=== PATIENT | female | born 1955 | race Caucasian/White ===

== ENCOUNTER 2021-02-17 06:11 | Day surgery (SDC) | payer MEDICARE, MEDICAID ==
[2021-02-17] MEDS ORDERED: Sodium Chloride 0.9% 1,000 ML IV SCH (07:00)
[2021-02-17] MEDS ORDERED: fentaNYL 100 MCG/2 ML SDV ONE (07:24)
[2021-02-17] MEDS ORDERED: Propofol 200 MG/20 ML SDV ONE (07:24)
[2021-02-17] MEDS ORDERED: Midazolam 1 MG/ML 2 ML SDV ONE (07:24)
[2021-02-17 09:07] VITALS: BP 111/72; PULSE 86
--- NOTE | 2021-03-05 13:50 | OR ---
DATE OF PROCEDURE: 02/17/2021 SURGEON: Jhonatan Dinh MD PROCEDURES: 1. EGD. 2. Colonoscopy. FINDINGS: 1. Mild inflammation at the GE junction. 2. Normal colonoscopy. COMPLICATIONS: None. UNIT SUPERVISOR: None. ANESTHESIA: MAC. PREOPERATIVE DIAGNOSIS: Screening colonoscopy/epigastric pain. POSTOPERATIVE DIAGNOSIS: Screening colonoscopy/epigastric pain. RISKS: Risks, benefits, alternatives, and limitations including, but not limited to infection, bleeding, perforation, false positives, false negatives were explained to the patient and she wished to proceed. PROCEDURE IN DETAIL: The patient was placed in left lateral decubitus position. The EGD scope was introduced and advanced atraumatically to the second part of the duodenum. No evidence of duodenitis or ulceration. Within the stomach, there was no gastritis or ulceration. No abnormalities on retroflexion. The patient had a few small tongues of inflammatory like tissue at the GE junction. These were biopsied including all 4 quadrants using cold biopsy forceps. The remainder of the esophagus was inspected without abnormality. Digital rectal exam was performed next. The scope was introduced and advanced atraumatically to the ileocecal valve. A photo was taken of this. Scope was brought back to the ascending, transverse, descending colon, and retroflexed. No evidence of old or new blood. No masses. No polyps. No diverticulosis. No abnormalities on retroflexion. The patient tolerated the procedure well. Greater than 8 minutes was spent removing the scope. Prep was acceptable, approximately 90% of the luminal surface could be seen. Jhonatan Dinh MD /[id number]
== END 2021-02-17 09:10 | disposition home or self-care (01) ==
LOC: JP.SDS 06:11
PROVIDERS: ATTEND Surgery
DX: Z12.11 Encounter for screening for malignant neoplasm of colon (principal); K20.90 Esophagitis, unspecified without bleeding; I10 Essential (primary) hypertension; J43.9 Emphysema, unspecified; E66.9 Obesity, unspecified; Z68.27 Body mass index [BMI] 27.0-27.9, adult; Z88.0 Allergy status to penicillin; Z88.8 Allergy status to other drugs, medicaments and biological substances
CPT/HCPCS: 43239; 88305; G0121; J2250; J2704; J3010